=== PATIENT | female | born 1985 | race Caucasian/White ===

== ENCOUNTER → 2016-07-31 | Outpatient (CLI) | payer OTHER | LOC: KOH-I 11:30 | DX: R51 Headache (principal); R42 Dizziness and giddiness; R90.89 Other abnormal findings on diagnostic imaging of central nervous system | CPT/HCPCS: 70450 ==

== ENCOUNTER → 2020-03-10 | Outpatient (CLI) | payer OTHER ==
[~2020-03-10] MED LIST: HYDROCODON-ACE1 EAC4 PO; NAPROSYN500 MG PO; NORFLEX 100 MG100 MG PO; ONDANSETRON4 MG/2 M2 PO; PROZAC40 MG PO; SINGULAIR10 MG PO; SYNTHROID75 MCG PO
[2020-03-10 12:12] LABS: HEMOGLOBIN 14.1 gm/dl (12.3-15.3); RED BLOOD COUNT 5.13 M/UL (4.00-5.10); WHITE BLOOD COUNT 11.1 K/UL (4.5-11.0)
== END ==
LOC: OPSV2 11:00
PROVIDERS: Obstetrics & Gynecology
DX: Z01.812 Encounter for preprocedural laboratory examination (principal); R10.2 Pelvic and perineal pain; R32 Unspecified urinary incontinence
CPT/HCPCS: 36415; 81001; 85025

== ENCOUNTER 2020-03-14 09:44 | Day surgery (SDC) | payer OTHER ==
[~2020-03-14] VITALS: Ht 157.5 cm; Wt 83.9 kg
[~2020-03-14 09:44] MED LIST changes: -HYDROCODON-ACE1 EAC4 PO; -ONDANSETRON4 MG/2 M2 PO; -PROZAC40 MG PO; -SINGULAIR10 MG PO; -SYNTHROID75 MCG PO
[2020-03-14] MEDS ORDERED: SYNTHROID75 MCG PO (10:49)
[2020-03-14] MEDS ORDERED: PROZAC40 MG PO (10:49)
[2020-03-14] MEDS ORDERED: SINGULAIR10 MG PO (10:49)
[2020-03-15] MEDS ORDERED: ONDANSETRON4 MG/2 M2 PO (10:07)
[2020-03-15] MEDS ORDERED: HYDROCODON-ACE1 EAC4 PO ×2 (10:07→12:00)
== END 2020-03-15 17:15 | disposition home or self-care (01) ==
LOC: OR 09:44 → OB 16:56 → OR 03-15 17:15 → OB 03-15 17:15
PROVIDERS: Obstetrics & Gynecology
PROC: 0JQC0ZZ Repair Pelvic Region Subcutaneous Tissue and Fascia, Open Approach (ICD-10-PCS; 2020-03-14)
PROC: 0UT74ZZ Resection of Bilateral Fallopian Tubes, Percutaneous Endoscopic Approach (ICD-10-PCS; 2020-03-14)
PROC: 0UT94ZZ Resection of Uterus, Percutaneous Endoscopic Approach (ICD-10-PCS; principal; 2020-03-14 10:45)
PROC: 0UT24ZZ Resection of Bilateral Ovaries, Percutaneous Endoscopic Approach (ICD-10-PCS; 2020-03-14 10:45)
DX: N81.4 Uterovaginal prolapse, unspecified (principal); N39.3 Stress incontinence (female) (male); N72 Inflammatory disease of cervix uteri; E03.9 Hypothyroidism, unspecified; G43.909 Migraine, unspecified, not intractable, without status migrainosus; F41.9 Anxiety disorder, unspecified; F32.9 Major depressive disorder, single episode, unspecified; Z87.891 Personal history of nicotine dependence; Z79.899 Other long term (current) drug therapy
CPT/HCPCS: 36415; 84703; 85014; 85018; 88342; C1769; C1771; J0690; J1100; J1885; J2001; J2250; J2270; J2405; J2704; J2710; J2765; J3010; J7050; J7120

== ENCOUNTER 2020-09-21 23:59 | Emergency (ER) | payer OTHER ==
[~2020-09-21 23:59] MED LIST changes: +HYDROCODON-ACE1 EAC4 PO; +ONDANSETRON4 MG/2 M2 PO; +PROZAC40 MG PO; +SINGULAIR10 MG PO; +SYNTHROID75 MCG PO
[2020-09-22 01:29] LABS: HEMOGLOBIN 13.6 gm/dl (12.3-15.3); RED BLOOD COUNT 4.79 M/UL (4.00-5.10); WHITE BLOOD COUNT 10.9 K/UL (4.5-11.0)
[2020-09-22 01:50] LABS: BUN/CREATININE RATIO 16 (0-10)
== END 2020-09-22 04:13 | disposition home or self-care (01) ==
LOC: ER1 23:59
PROVIDERS: Physician Assistant
DX: R07.9 Chest pain, unspecified (principal); Z90.710 Acquired absence of both cervix and uterus; Z79.899 Other long term (current) drug therapy
CPT/HCPCS: 71045; 80053; 82550; 82553; 83874; 83880; 84484; 85025; 93005; 99285

== ENCOUNTER → 2020-12-14 | Outpatient (CLI) | payer OTHER | LOC: SLEEP 15:21 | DX: G47.10 Hypersomnia, unspecified (principal) | CPT/HCPCS: 95810 ==

== ENCOUNTER → 2021-08-22 | Outpatient (CLI) | payer OTHER | LOC: EMI 07:55 → KOH-I 08-24 10:30 | DX: G43.009 Migraine without aura, not intractable, without status migrainosus (principal) | CPT/HCPCS: 70551 ==